=== PATIENT | female | born 1995 | race African-American/Black ===

== ENCOUNTER 2017-10-27 14:26 | Emergency (ER) | payer MEDICAID ==
[~2017-10-27] VITALS: Ht 167.6 cm; Wt 60.0 kg
[2017-10-27 18:27] LABS: CLARITY URINE CLOUDY (CLEAR); COLOR URINE YELLOW (YELLOW); KETONES URINE NEGATIVE (NEGATIVE); LEUKOCYTE ESTERASE URINE 3+ (NEGATIVE); NITRITE URINE NEGATIVE (NEGATIVE); OCCULT BLOOD URINE 2+ (NEGATIVE); PROTEIN URINE 1+ (NEGATIVE)
[2017-10-27] MEDS ORDERED: AZITHROMYCIN 500 MG TABLET PO ONE (19:15)
[2017-10-27] MEDS ORDERED: LIDOCAINE HCL 1% 20ML VIAL (Pyxis) INJ INFIL ONE (19:15)
[2017-10-27] MEDS ORDERED: CEFTRIAXONE SODIUM 1 G/VIAL IM ONE (19:15)
[2017-10-27] MEDS ORDERED: LIDOCAINE HCL/PF 1% 10 MG/ML 5ML VIAL IJ SCH (19:45)
[2017-10-27 20:07] VITALS: BP 120/66
== END 2017-10-27 20:09 | disposition home or self-care (01) ==
LOC: ER 14:26
DX: N12 Tubulo-interstitial nephritis, not specified as acute or chronic (principal)
CPT/HCPCS: 81003; 81025; 87077; 87086; 87186; 96372; 99284; J0696; J3490

== ENCOUNTER 2018-02-08 02:25 | Emergency (ER) | payer MEDICAID, MEDICARE ==
[~2018-02-08] VITALS: Ht 170.2 cm; Wt 54.0 kg
[2018-02-08] MEDS ORDERED: CEFTRIAXONE SODIUM 250 MG/VIAL IM ONE (03:15)
[2018-02-08] MEDS ORDERED: AZITHROMYCIN 500 MG TABLET PO ONE (03:15)
[2018-02-08 04:14] LABS: CLARITY URINE TURBID (CLEAR); COLOR URINE RED (YELLOW); KETONES URINE 1+ (NEGATIVE); LEUKOCYTE ESTERASE URINE 3+ (NEGATIVE); NITRITE URINE NEGATIVE (NEGATIVE); OCCULT BLOOD URINE 3+ (NEGATIVE); PROTEIN URINE 3+ (NEGATIVE)
[2018-02-08] MEDS ORDERED: LIDOCAINE HCL/PF 1% 10 MG/ML 5ML VIAL IJ ONE (04:15)
[2018-02-08 05:56] VITALS: BP 125/78
[2018-02-11 04:13] LABS: CHLAMYDIA TRACHOMATIS NAA Negative (Negative); NEISSERIA GONORRHOEAE NAA Negative (Negative)
== END 2018-02-08 05:57 | disposition home or self-care (01) ==
LOC: ER 02:50
DX: N39.0 Urinary tract infection, site not specified (principal)
CPT/HCPCS: 81003; 81025; 87086; 87210; 87491; 87591; 96372; 99284; J0696; J3490

== ENCOUNTER 2019-06-23 11:09 | Emergency (ER) | payer MEDICARE | END 2019-06-23 13:37 | disposition left against medical advice (07) | LOC: ER 11:09 | DX: O46.91 Antepartum hemorrhage, unspecified, first trimester (principal); Z3A.10 10 weeks gestation of pregnancy; Z53.21 Procedure and treatment not carried out due to patient leaving prior to being seen by health care provider ==

== ENCOUNTER 2022-03-26 16:36 | Emergency (ER) | payer MEDICARE ==
[~2022-03-26] VITALS: Ht 170.2 cm; Wt 60.0 kg
[2022-03-26 16:45] VITALS: BP 127/61
[2022-03-26] MEDS ORDERED: ACETAMINOPHEN 325MG TABLET PO PRN (17:00)
[2022-03-26 17:28] LABS: BASOPHILS % 0.3 % (0.0-2.0); EOSINOPHILS % 0.2 % (0.0-5.0); HEMATOCRIT. 36.3 % (36.0-48.0); HEMOGLOBIN. 12.6 g/dL (12.0-16.0); LYMPHOCYTES % 17.4 % (20.0-50.0); MEAN CORPUSCULAR HEMOGLOBIN 31.6 pg (28.0-32.0); MEAN CORPUSCULAR VOLUME 91.3 fL (81.0-99.0); MEAN PLATELET VOLUME 10.5 fl (7.4-10.4); MONOCYTES % 6.7 % (2.0-8.0); NEUTROPHILS % 75.4 % (40.0-76.0); PLATELET 248 x1000/uL (130-400); RED BLOOD CELL COUNT 3.98 mill/uL (4.2-5.4); RED CELL DISTRIBUTION WIDTH 13.1 % (11.6-14.6)
[2022-03-26 17:35] LABS: CHLORIDE 105 mEq/L (98-107)
[2022-03-26 18:03] LABS: B-HCG QUANTITATIVE 86775 mIU/mL (<3)
[2022-03-26 18:50] LABS: CLARITY URINE CLOUDY (CLEAR); COLOR URINE YELLOW (YELLOW); KETONES URINE TRACE (NEGATIVE); LEUKOCYTE ESTERASE URINE 1+ (NEGATIVE); NITRITE URINE NEGATIVE (NEGATIVE); OCCULT BLOOD URINE NEGATIVE (NEGATIVE); PH URINE 5.5 (4.5-8.0); PROTEIN URINE NEGATIVE (NEGATIVE); SPECIFIC GRAVITY URINE 1.014 (1.005-1.030)
[2022-03-26] MEDS ORDERED: ACET-2708 MT (18:54)
[2022-03-26 19:02] LABS: *AMPHETAMINES SCREEN URINE NEGATIVE (NEGATIVE); *BARBITURATES SCREEN URINE NEGATIVE (NEGATIVE); *BENZODIAZEPINES SCREEN URINE NEGATIVE (NEGATIVE); *COCAINE SCREEN URINE NEGATIVE (NEGATIVE); CANNABINOID URINE SCREEN NEGATIVE (NEGATIVE); METHADONE URINE SCREEN NEGATIVE (NEGATIVE); OPIATES URINE SCREEN NEGATIVE (NEGATIVE); PHENCYCLIDINE URINE SCREEN NEGATIVE (NEGATIVE)
== END 2022-03-26 19:21 | disposition home or self-care (01) ==
LOC: ER 16:36
DX: O99.891 Other specified diseases and conditions complicating pregnancy (principal); R10.9 Unspecified abdominal pain; G89.11 Acute pain due to trauma; O20.9 Hemorrhage in early pregnancy, unspecified
CPT/HCPCS: 36415; 76801; 80053; 80305; 81003; 81025; 84702; 85025; 86850; 86900; 99284